=== PATIENT | female | born 1945 | race African-American/Black ===

== ENCOUNTER 2017-12-02 12:20 | Emergency (ER) | payer MEDICARE, MEDICAID ==
[~2017-12-02] VITALS: Ht 172.7 cm; Wt 68.0 kg
[~2017-12-02 12:20] MED LIST: ALLOPURINOL; ASPIRIN; ATENOLOL; CHLORTHALIDONE; LORATADINE; SENSIPAR; SIMVASTATIN; TRAMADOL; TYLENOL PM
[2017-12-02 12:21] VITALS: BP 0/0
[2017-12-02] MEDS ORDERED: DEXTROSE 50% WATER 50ML SYRINGE IV ONE (14:43)
[2017-12-02] MEDS ORDERED: CALCIUM CHLORIDE 1GM/10ML SYR IV ONE (14:43)
== END 2017-12-02 12:21 | disposition expired ==
LOC: ER 12:20
DX: I46.9 Cardiac arrest, cause unspecified (principal); E11.9 Type 2 diabetes mellitus without complications; I10 Essential (primary) hypertension; J44.9 Chronic obstructive pulmonary disease, unspecified; Z99.2 Dependence on renal dialysis; Z79.82 Long term (current) use of aspirin
CPT/HCPCS: 99285; J3490